=== PATIENT | male | born 1985 | race Caucasian/White ===

== ENCOUNTER 2016-11-19 23:16 | Emergency (ER) | payer OTHER ==
--- NOTE | 2016-11-19 23:39 | ED CLINICAL REPORT ---
Clinical Report - Physicians/Mid Levels [facility] [address] [place] [address] 11/19/2016 23:19 Patient: VANESSA HIGUERA Time Seen: 2330; upon arrival, initial patient contact, initial documentation, patient care assumed. Arrived- By private vehicle. Historian- patient. HISTORY OF PRESENT ILLNESS Chief Complaint: DENTAL PAIN. This started about 3 days ago and is still present. Pain described as severe. No sore throat, mouth sores, nasal discharge or congestion or ear pain. No jaw pain or facial pain. He has had toothache and swelling of the jaw and face. (says piece of tooth chipped off and he is hurting, did not take any otc meds for pain). Similar symptoms previously: ( tooth was capped for cavities). Recent medical care: Not recently seen/assessed. REVIEW OF SYSTEMS No fever or difficulty breathing. All systems otherwise negative, except as recorded above. PAST HISTORY See nurses notes. PROBLEMS: Dyspnea. Hyperventilation. Lumbar Strain. Allergic Rhinitis. Conjunctivitis. Sinusitis. Pharyngitis. Bronchospasm. Bronchitis. Back Pain. Back Injury. Crush Injury, Lower Extremity. Contusion. Tetanus Status. Immunizations. Asthma. --23:32 Page-April Ybarra R.N. ADDITIONAL SURGERIES: no known surgeries. SOCIAL HISTORY Light tobacco smoker. Occasional alcohol use. History of heavy drug use: marijuana. Recently used drugs just prior to arrival. Under influence in ED. No recent travel. Is a local resident. FAMILY HISTORY Negative. ADDITIONAL NOTES The nursing notes have been reviewed with agreement regarding the chief complaint, HPI, ROS, PMH and patient medications and allergies. PHYSICAL EXAM Vital Signs: 11/19/2016 23:29 BP: 113/64. HR: 61. RR: 17. O2 saturation: 99%. Temp: 97.6 F. Pain level now: 7/10. Have been reviewed as normal and appear to be correct. Appearance: Alert. No acute distress. (strong marijuana smell, and pt obviously under the influence). Head: Abnormal external inspection. Mild swelling of the left mandible. Eyes: Pupils equal, round and reactive to light. Conjunctivae and eyelids normal. ENT: Mild, localized dental decay (lower left second molar) (piece of tooth gone). No gingival tenderness, induration, swelling or fluctuance. Ears normal. Nose normal. Pharynx normal. Lips normal. Gums normal. No trismus present. Uvula midline. Neck: Normal inspection. Trachea midline. No adenopathy. Thyroid normal. Neck supple. Respiratory: No respiratory distress. Skin: Normal skin color. No rash. Normal skin turgor. Extremities: Extremities exhibit normal ROM. Extremities nontender. Neuro: Oriented X 3. No motor deficit. No sensory deficit. PROGRESS AND PROCEDURES Patient counseled in person regarding the patient's stable condition and diagnosis. 23:38. Differential Diagnosis: Other possible considerations: substance abuse, dental caries, pain, abscess. Above considerations are based on history and physical exam. Differential diagnosis was discussed with patient. Disposition: Discharged home in good and unchanged condition (23:38). Condition: good and stable. CLINICAL IMPRESSION Mild dental pain. INSTRUCTIONS Warnings: GENERAL WARNINGS: Return or contact your physician immediately if your condition worsens or changes unexpectedly, if not improving as expected, or if other problems arise. Specifically return if problem worsens. Prescription Medications: Penicillin V 500mg: take 1 tab orally every 6 hours for 10 days. Dispense forty (40). No refill Naprosyn 500 mg tablets: take 1 orally every 12 hours as needed for pain. Dispense twenty (20). No refills. Substitution is permissible. Follow-up: Follow up with a dentist in about three days as needed. Call for an appointment. Summary of care provided to patient. Understanding of the discharge instructions verbalized by patient. (Electronically signed by Vonnie Hanley A.R.N.P. 11/22/2016 11:14)
--- NOTE | 2016-11-19 23:39 | ED NURSING NOTES ---
Clinical Report - Nurses [facility] [address] [place] [address] 11/19/2016 23:19 Patient: VANESSA HIGUERA TRIAGE Triage time 23:29 Nov 19 2016. Chief Complaint: LEFT LOWER TOOTHACHE and CHIPPED TOOTH and JAW PAIN. Alert. No acute distress. SEPSIS SCREEN: Sepsis Screen: negative. Infection suspected/documented. --23:36 April Leiva R.N. 23:29 11/19/16. BP: 113/64. HR: 61. RR: 17. O2 saturation: 99%. Temp: 97.6 F. Pain level now: 01/23. --23:36 April Leiva R.N. Weight: 95.2 kg stated. Height/Length: 71 inches Per Patient. BMI: 29.3. --23:35 April Leiva R.N. Medications Albuterol Sulfate Inhalation. --23:31 April Leiva R.N. Medication/allergy information source: the patient. --23:36 April Leiva R.N. Allergies None. --23:31 April Leiva R.N. History Arrived by private vehicle. Historian: patient. Accompanied by family. Onset. (3 days). He has no dental appointment scheduled. 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 (pt hasn't taken any otc meds for pain). PAST MEDICAL HX: Immunizations: up-to-date. SOCIAL HX: Smoker- current status unknown (cigarette). History of drug use: marijuana. No alcohol use. No infectious disease exposure. ABUSE ASSESSMENT: No report of abuse. SELF HARM ASSESSMENT: A self harm assessment was performed. The patient answered "no" to the question "Have you recently felt down, depressed, or hopeless?", "Have you noticed less interest or pleasure in doing things?", "Do you have thoughts of harming or killing yourself?", "Are you here because you tried to hurt yourself?", "Have you ever tried to hurt yourself before today?", "Have you recently had thoughts about harming or killing others?" and "Do you have any dangerous items in your possession?". FALL RISK ASSESSMENT: Fall risk assessment completed. No fall risk identified. NUTRITIONAL RISK ASSESSMENT: The nutritional risk assessment revealed no deficiencies. FUNCTIONAL ASSESSMENT: Functional assessment: no impairments noted. LEARNING NEEDS ASSESSMENT: The learning needs assessment revealed no barriers. SKIN INTEGRITY ASSESSMENT: Skin integrity risk assessment completed. No skin integrity risk identified. --23:36 April Leiva R.N. PROBLEMS: Dyspnea. Hyperventilation. Lumbar Strain. Allergic Rhinitis. Conjunctivitis. Sinusitis. Pharyngitis. Bronchospasm. Bronchitis. Back Pain. Back Injury. Crush Injury, Lower Extremity. Contusion. Tetanus Status. Immunizations. Asthma. --23:32 April Leiva R.N. ADDITIONAL SURGERIES: no known surgeries. Interventions ID band on patient. --23:36 April Leiva R.N. PHYSICAL ASSESSMENT Ambulatory to room. GENERAL / NEURO / PSYCH: Alert. Oriented X 4. HEENT: Pupils equal, round and reactive to light. Dental tenderness. Dental decay. Mucous membranes are pink. RESPIRATORY: Respirations not labored. CVS: Capillary refill less than 2 seconds. SKIN: Skin is warm and dry. Normal skin turgor. --23:37 April Leiva R.N. NURSING PROGRESS NOTES Reassurance given. Patient identifiers checked. Call light placed in reach. Side rails up x 1. Bed placed in lowest position. Brakes of bed on. --23:38 April Leiva R.N. 00:13 11/20/2016 Ibuprofen PO Tablets 600 mg given. --00:13 Louise Vasquez R.N. 00:13 11/20/2016 Zofran ODT (Ondansetron) PO 4 mg given. --00:13 Louise Vasquez R.N. DISPOSITION / DISCHARGE 00:40 11/20/16. Departure time: 0030 AM. Condition at departure: unchanged. No learning barriers present. Discharge instructions provided and reviewed with the spouse. Reviewed medication(s). Treatments reviewed. Verbalized understanding. Written instructions provided in [place]. The patient was discharged home. He left the Emergency Department ambulatory. Spouse driving. Medication list reviewed and validated. FALL RISK ASSESSMENT: Fall risk assessment completed. No fall risk identified. --00:42 Louise Vasquez R.N. Locked/Released at 11/20/2016 19:02 by April Leiva R.N.
--- NOTE | 2016-11-19 23:39 | ED NURSING NOTES ---
Clinical Report - Nurses [facility] [address] [place] [address] 11/19/2016 23:19 Patient: VANESSA HIGUERA TRIAGE Triage time 23:29 Nov 19 2016. Chief Complaint: LEFT LOWER TOOTHACHE and CHIPPED TOOTH and JAW PAIN. Alert. No acute distress. SEPSIS SCREEN: Sepsis Screen: negative. Infection suspected/documented. --23:36 April Leiva R.N. 23:29 11/19/16. BP: 113/64. HR: 61. RR: 17. O2 saturation: 99%. Temp: 97.6 F. Pain level now: 01/23. --23:36 April Leiva R.N. Weight: 95.2 kg stated. Height/Length: 71 inches Per Patient. BMI: 29.3. --23:35 April Leiva R.N. Medications Albuterol Sulfate Inhalation. --23:31 April Leiva R.N. Medication/allergy information source: the patient. --23:36 April Leiva R.N. Allergies None. --23:31 April Leiva R.N. History Arrived by private vehicle. Historian: patient. Accompanied by family. Onset. (3 days). He has no dental appointment scheduled. 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 (pt hasn't taken any otc meds for pain). PAST MEDICAL HX: Immunizations: up-to-date. SOCIAL HX: Smoker- current status unknown (cigarette). History of drug use: marijuana. No alcohol use. No infectious disease exposure. ABUSE ASSESSMENT: No report of abuse. SELF HARM ASSESSMENT: A self harm assessment was performed. The patient answered "no" to the question "Have you recently felt down, depressed, or hopeless?", "Have you noticed less interest or pleasure in doing things?", "Do you have thoughts of harming or killing yourself?", "Are you here because you tried to hurt yourself?", "Have you ever tried to hurt yourself before today?", "Have you recently had thoughts about harming or killing others?" and "Do you have any dangerous items in your possession?". FALL RISK ASSESSMENT: Fall risk assessment completed. No fall risk identified. NUTRITIONAL RISK ASSESSMENT: The nutritional risk assessment revealed no deficiencies. FUNCTIONAL ASSESSMENT: Functional assessment: no impairments noted. LEARNING NEEDS ASSESSMENT: The learning needs assessment revealed no barriers. SKIN INTEGRITY ASSESSMENT: Skin integrity risk assessment completed. No skin integrity risk identified. --23:36 April Leiva R.N. PROBLEMS: Dyspnea. Hyperventilation. Lumbar Strain. Allergic Rhinitis. Conjunctivitis. Sinusitis. Pharyngitis. Bronchospasm. Bronchitis. Back Pain. Back Injury. Crush Injury, Lower Extremity. Contusion. Tetanus Status. Immunizations. Asthma. --23:32 April Leiva R.N. ADDITIONAL SURGERIES: no known surgeries. Interventions ID band on patient. --23:36 April Leiva R.N. PHYSICAL ASSESSMENT Ambulatory to room. GENERAL / NEURO / PSYCH: Alert. Oriented X 4. HEENT: Pupils equal, round and reactive to light. Dental tenderness. Dental decay. Mucous membranes are pink. RESPIRATORY: Respirations not labored. CVS: Capillary refill less than 2 seconds. SKIN: Skin is warm and dry. Normal skin turgor. --23:37 April Leiva R.N. NURSING PROGRESS NOTES Reassurance given. Patient identifiers checked. Call light placed in reach. Side rails up x 1. Bed placed in lowest position. Brakes of bed on. --23:38 April Leiva R.N. 00:13 11/20/2016 Ibuprofen PO Tablets 600 mg given. --00:13 Louise Vasquez R.N. 00:13 11/20/2016 Zofran ODT (Ondansetron) PO 4 mg given. --00:13 Louise Vasquez R.N. DISPOSITION / DISCHARGE 00:40 11/20/16. Departure time: 0030 AM. Condition at departure: unchanged. No learning barriers present. Discharge instructions provided and reviewed with the spouse. Reviewed medication(s). Treatments reviewed. Verbalized understanding. Written instructions provided in [place]. The patient was discharged home. He left the Emergency Department ambulatory. Spouse driving. Medication list reviewed and validated. FALL RISK ASSESSMENT: Fall risk assessment completed. No fall risk identified. --00:42 Louise Vasquez R.N. Locked/Released at 11/20/2016 19:02 by April Leiva R.N.
--- NOTE | 2016-11-22 11:14 | ED DISCHARGE INSTRUCTIONS ---
Patient: VANESSA HIGUERA General Instructions [facility] VisitID: [id number] [place] [address] 31y, M Registration Date/Time: 11/19/2016 Mild dental pain. INSTRUCTIONS Warnings: GENERAL WARNINGS: Return or contact your physician immediately if your condition worsens or changes unexpectedly, if not improving as expected, or if other problems arise. Specifically return if problem worsens. Prescription Medications: Penicillin V 500mg: take 1 tab orally every 6 hours for 10 days. Dispense forty (40). No refill Naprosyn 500 mg tablets: take 1 orally every 12 hours as needed for pain. Dispense twenty (20). No refills. Substitution is permissible. Follow-up: Follow up with a dentist in about three days as needed. Call for an appointment. Summary of care provided to patient. Understanding of the discharge instructions verbalized by patient. ADDITIONAL INFORMATION Dental Pain A crack or cavity in the tooth, which exposes the sensitive inner area of the tooth can cause tooth pain. An infection in the gum or the root of the tooth can cause pain and swelling. The pain is often made worse by drinking hot or cold fluids, or biting on hard foods. Pain may spread from the tooth to the ear or jaw on the same side. Home Care: Avoid hot and cold foods and liquids since your tooth may be sensitive to temperature changes. If your tooth is chipped or cracked, or if there is a large open cavity, apply OIL OF CLOVES (available logd-ejj-mdledns in drug stores) directly to the tooth to reduce pain. Some pharmacies carry an obpo-upt-yzeyqdv "toothache kit." This contains a paste, which can be applied over the exposed tooth to decrease sensitivity. A cold pack on your jaw over the sore area may help reduce pain. You may use acetaminophen (Tylenol) or ibuprofen (Motrin, Advil) to control pain, unless another medicine was prescribed. [ NOTE: If you have chronic liver or kidney disease or ever had a stomach ulcer or GI bleeding, talk with your doctor before using these medicines.] If you have signs of an infection, an antibiotic will be given. Take it as directed. Follow-Up as directed with a dentist. Your pain may go away with the treatment given. However, only a dentist can fully evaluate and treat the cause and prevent the pain from coming back again. TOOTHACHE IS A SIGN OF DISEASE IN YOUR TOOTH AND SHOULD BE EXAMINED AND TREATED BY A DENTIST. Get Prompt Medical Attention if any of the following occur: Your face becomes swollen or red Pain worsens or spreads to the neck Fever over 100.4 F (38.0 C) Unusual drowsiness; headache or stiff neck; weakness or fainting Pus drains from the tooth Difficulty swallowing or breathing Dental Cavity A dental cavity is a pit or crater in the enamel surface of the tooth. This exposes the sensitive inner layer of the tooth and causes pain. If untreated, the cavity will get bigger and may cause an infection or abscess in the root of the tooth. An infection in the tooth is a much more serious problem and may require a root canal or removal of the entire tooth. The tooth pain may be made worse by drinking hot or cold fluids. It may spread from the tooth to the ear or jaw on the same side. Home Care: Avoid hot and cold foods, and liquids since your tooth may be sensitive to temperature changes. If your tooth is chipped or cracked, or if there is a large open cavity, apply OIL OF CLOVES (available nkua-xhq-plaguxr in drug stores) directly to the tooth to reduce pain. Some pharmacies carry an mjyp-urm-cxrwmit "toothache kit." This contains oil of cloves and a paste, which can be applied over the exposed tooth to decrease sensitivity. An ice pack on your jaw over the sore area may help to reduce pain. You may use acetaminophen (Tylenol) or ibuprofen (Motrin, Advil) to control pain, unless another pain medicine was prescribed. [ NOTE: If you have liver disease or ever had a stomach ulcer, talk with your doctor before using these medicines.] If you have signs of an infection, an antibiotic will be given. Take it as directed. Follow-Up with your dentist as directed. Although your pain may go away with the treatment given, only a dentist can fully evaluate and treat this problem to prevent further tooth damage. Get Prompt Medical Attention if any of the following occur: Redness or swelling of the face Pain worsens or spreads to the neck Fever over 100.5 F (38C) Unusual drowsiness; headache or stiff neck; weakness or fainting Pus drains from the tooth or gum Difficulty swallowing or breathing Penicillin V Potassium Oral tablet What is this medicine? PENICILLIN V (pen i SILL in V) is a penicillin antibiotic. It is used to treat certain kinds of bacterial infections. It will not work for colds, flu, or other viral infections. How should I use this medicine? Take this medicine by mouth with a full glass of water. Follow the directions on the prescription label. Take your medicine at regular intervals. Do not take your medicine more often than directed. Take all of your medicine as directed even if you think your are better. Do not skip doses or stop your medicine early. Talk to your keyboard action assembler regarding the use of this medicine in children. While this drug may be prescribed for selected conditions, precautions do apply. What side effects may I notice from receiving this medicine? Side effects that you should report to your doctor or health sub acute care nurse as soon as possible: allergic reactions like skin rash or hives, swelling of the face, lips, or tongue breathing problems fever new symptoms of infection redness, blistering, peeling or loosening of the skin, including inside the mouth unusually weak or tired Side effects that usually do not require medical attention (report to your doctor or health sub acute care nurse if they continue or are bothersome): diarrhea headache nausea, vomiting sore mouth or tongue stomach upset What may interact with this medicine? control pills methotrexate other antibiotics probenecid some vaccines What if I miss a dose? If you miss a dose, take it as soon as you can. If it is almost time for your next dose, take only that dose. Do not take double or extra doses. Where should I keep my medicine? Keep out of the reach of children. Store at room temperature between 15 and 30 degrees C (59 and 86 degrees F). Keep container tightly closed. Throw away any unused medicine after the expiration date. What should I tell my health care provider before I take this medicine? They need to know if you have any of these conditions: asthma bowel disease, like colitis eczema kidney disease an unusual or allergic reaction to penicillin, cephalosporins, other antibiotics or medicines, foods, tartrazine or other dyes, or preservatives or trying to get breast-feeding What should I watch for while using this medicine? Tell your doctor or health sub acute care nurse if your symptoms do not improve. Do not treat diarrhea with over the counter products. Contact your doctor if you have diarrhea that lasts more than 2 days or if it is severe and watery. If you have diabetes, you may get a false-positive result for sugar in your urine. Check with your doctor or health sub acute care nurse. control pills may not work properly while you are taking this medicine. Talk to your doctor about using an extra method of control. Naproxen Sodium Oral tablet What is this medicine? NAPROXEN (na PROX en) is a non-steroidal anti-inflammatory drug (NSAID). It is used to reduce swelling and to treat pain. This medicine may be used for dental pain, headache, or painful monthly periods. It is also used for painful joint and muscular problems such as arthritis, tendinitis, bursitis, and gout. How should I use this medicine? Take this medicine by mouth with a glass of water. Follow the directions on the prescription label. Take it with food if your stomach gets upset. Try to not lie down for at least 10 minutes after you take it. Take your medicine at regular intervals. Do not take your medicine more often than directed. Long-term, continuous use may increase the risk of heart attack or stroke. A special MedGuide will be given to you by the pharmacist with each prescription and refill. Be sure to read this information carefully each time. Talk to your keyboard action assembler regarding the use of this medicine in children. Special care may be needed. What side effects may I notice from receiving this medicine? Side effects that you should report to your doctor or health sub acute care nurse as soon as possible: black or bloody stools, blood in the urine or vomit blurred vision chest pain difficulty breathing or wheezing nausea or vomiting severe stomach pain skin rash, skin redness, blistering or peeling skin, hives, or itching slurred speech or weakness on one side of the body swelling of eyelids, throat, lips unexplained weight gain or swelling unusually weak or tired yellowing of eyes or skin Side effects that usually do not require medical attention (report to your doctor or health sub acute care nurse if they continue or are bothersome): constipation headache heartburn What may interact with this medicine? alcohol aspirin cidofovir diuretics lithium methotrexate other drugs for inflammation like ketorolac or prednisone pemetrexed probenecid warfarin What if I miss a dose? If you miss a dose, take it as soon as you can. If it is almost time for your next dose, take only that dose. Do not take double or extra doses. Where should I keep my medicine? Keep out of the reach of children. Store at room temperature between 15 and 30 degrees C (59 and 86 degrees F). Keep container tightly closed. Throw away any unused medicine after the expiration date. What should I tell my health care provider before I take this medicine? They need to know if you have any of these conditions: asthma cigarette smoker drink more than 3 alcohol containing drinks a day heart disease or circulation problems such as heart failure or leg edema (fluid retention) high blood pressure kidney disease liver disease stomach bleeding or ulcers an unusual or allergic reaction to naproxen, aspirin, other NSAIDs, other medicines, foods, dyes, or preservatives or trying to get breast-feeding What should I watch for while using this medicine? Tell your doctor or health sub acute care nurse if your pain does not get better. Talk to your doctor before taking another medicine for pain. Do not treat yourself. This medicine does not prevent heart attack or stroke. In fact, this medicine may increase the chance of a heart attack or stroke. The chance may increase with longer use of this medicine and in people who have heart disease. If you take aspirin to prevent heart attack or stroke, talk with your doctor or health sub acute care nurse. Do not take other medicines that contain aspirin, ibuprofen, or naproxen with this medicine. Side effects such as stomach upset, nausea, or ulcers may be more likely to occur. Many medicines available without a prescription should not be taken with this medicine. This medicine can cause ulcers and bleeding in the stomach and intestines at any time during treatment. Do not smoke cigarettes or drink alcohol. These increase irritation to your stomach and can make it more susceptible to damage from this medicine. Ulcers and bleeding can happen without warning symptoms and can cause . You may get drowsy or dizzy. Do not drive, use machinery, or do anything that needs mental alertness until you know how this medicine affects you. Do not stand or sit up quickly, especially if you are an older patient. This reduces the risk of dizzy or fainting spells. This medicine can cause you to bleed more easily. Try to avoid damage to your teeth and gums when you brush or floss your teeth. You have been given the following additional information: Dental Pain Dental Cavity Penicillin V Potassium Oral tablet Naproxen Sodium Oral tablet (Electronically signed by TalonVonnie wells A.R.N.P. 11/22/2016 11:14)
--- NOTE | 2016-11-22 11:14 | ED MAR SUMMARY ---
..... Medication Administration Record [facility] [address] [place] [address] Patient: VANESSA HIGUERA Visit ID: [id number] 31y, M Weight: 95.2 kg Height/Length: 71 in BMI: 29.3 ALLERGIES: None Given 00:11/20/2016 Louise Vasquez R.N. Medication Administered: IBUPROFEN [PO], Dose: 600 mg Tablets PO. Medication Ordered: Ibuprofen PO 600 mg (NOW). Given 00:11/20/2016 Louise Vasquez, RAngleNAngle Medication Administered: ZOFRAN ODT [PO] (ONDANSETRON), Dose: 4 mg PO. Medication Ordered: Zofran ODT PO 4 mg (NOW).
--- NOTE | 2016-11-22 11:14 | ED MAR SUMMARY ---
..... Medication Administration Record [facility] [address] [place] [address] Patient: VANESSA HIGUERA Visit ID: [id number] 31y, M Weight: 95.2 kg Height/Length: 71 in BMI: 29.3 ALLERGIES: None Given 00:11/20/2016 Louise Vasquez R.N. Medication Administered: IBUPROFEN [PO], Dose: 600 mg Tablets PO. Medication Ordered: Ibuprofen PO 600 mg (NOW). Given 00:11/20/2016 Louise Vasquez, RAngleNAngle Medication Administered: ZOFRAN ODT [PO] (ONDANSETRON), Dose: 4 mg PO. Medication Ordered: Zofran ODT PO 4 mg (NOW).
--- NOTE | 2016-11-22 11:14 | ED MED RECONCILIATION SUMMARY ---
Patient: VANESSA HIGUERA Medication Reconciliation Report [facility] VisitID: [id number] [address] [place] [address] 31y, M Registration Date/Time: 11/19/2016 Weight: 95.2 kg Height/Length: 71 in. BMI: 29.3 ALLERGIES: None The patient's Home Medications are listed below: THE FOLLOWING MEDICATIONS NEED TO BE RECONCILED: Albuterol Sulfate Inhalation The source(s) of the original Home Medication information: patient The following Medications were given to the patient in the Emergency Department: Ibuprofen [PO] PO 600 mg, administered: 11/20/2016 12:13:00 AM Zofran ODT [PO] PO 4 mg, administered: 11/20/2016 12:13:00 AM The following Medications were prescribed to the patient: Penicillin V 500mg: take 1 tab orally every 6 hours for 10 days. Dispense forty (40). No refill -- Vonnie Hanley A.R.N.P. Naprosyn 500 mg tablets: take 1 orally every 12 hours as needed for pain. Dispense twenty (20). No refills. Substitution is permissible. -- Vonnie Hanley A.R.N.P.
--- NOTE | 2016-11-22 11:14 | ED DISCHARGE INSTRUCTIONS ---
Patient: VANESSA HIGUERA General Instructions [facility] VisitID: [id number] [place] [address] 31y, M Registration Date/Time: 11/19/2016 Mild dental pain. INSTRUCTIONS Warnings: GENERAL WARNINGS: Return or contact your physician immediately if your condition worsens or changes unexpectedly, if not improving as expected, or if other problems arise. Specifically return if problem worsens. Prescription Medications: Penicillin V 500mg: take 1 tab orally every 6 hours for 10 days. Dispense forty (40). No refill Naprosyn 500 mg tablets: take 1 orally every 12 hours as needed for pain. Dispense twenty (20). No refills. Substitution is permissible. Follow-up: Follow up with a dentist in about three days as needed. Call for an appointment. Summary of care provided to patient. Understanding of the discharge instructions verbalized by patient. ADDITIONAL INFORMATION Dental Pain A crack or cavity in the tooth, which exposes the sensitive inner area of the tooth can cause tooth pain. An infection in the gum or the root of the tooth can cause pain and swelling. The pain is often made worse by drinking hot or cold fluids, or biting on hard foods. Pain may spread from the tooth to the ear or jaw on the same side. Home Care: Avoid hot and cold foods and liquids since your tooth may be sensitive to temperature changes. If your tooth is chipped or cracked, or if there is a large open cavity, apply OIL OF CLOVES (available wdkw-idi-irjywlk in drug stores) directly to the tooth to reduce pain. Some pharmacies carry an wuqw-lhu-ztwjylx "toothache kit." This contains a paste, which can be applied over the exposed tooth to decrease sensitivity. A cold pack on your jaw over the sore area may help reduce pain. You may use acetaminophen (Tylenol) or ibuprofen (Motrin, Advil) to control pain, unless another medicine was prescribed. [ NOTE: If you have chronic liver or kidney disease or ever had a stomach ulcer or GI bleeding, talk with your doctor before using these medicines.] If you have signs of an infection, an antibiotic will be given. Take it as directed. Follow-Up as directed with a dentist. Your pain may go away with the treatment given. However, only a dentist can fully evaluate and treat the cause and prevent the pain from coming back again. TOOTHACHE IS A SIGN OF DISEASE IN YOUR TOOTH AND SHOULD BE EXAMINED AND TREATED BY A DENTIST. Get Prompt Medical Attention if any of the following occur: Your face becomes swollen or red Pain worsens or spreads to the neck Fever over 100.4 F (38.0 C) Unusual drowsiness; headache or stiff neck; weakness or fainting Pus drains from the tooth Difficulty swallowing or breathing Dental Cavity A dental cavity is a pit or crater in the enamel surface of the tooth. This exposes the sensitive inner layer of the tooth and causes pain. If untreated, the cavity will get bigger and may cause an infection or abscess in the root of the tooth. An infection in the tooth is a much more serious problem and may require a root canal or removal of the entire tooth. The tooth pain may be made worse by drinking hot or cold fluids. It may spread from the tooth to the ear or jaw on the same side. Home Care: Avoid hot and cold foods, and liquids since your tooth may be sensitive to temperature changes. If your tooth is chipped or cracked, or if there is a large open cavity, apply OIL OF CLOVES (available rdkp-uuf-pshpdls in drug stores) directly to the tooth to reduce pain. Some pharmacies carry an ybrz-ztx-ahuvliq "toothache kit." This contains oil of cloves and a paste, which can be applied over the exposed tooth to decrease sensitivity. An ice pack on your jaw over the sore area may help to reduce pain. You may use acetaminophen (Tylenol) or ibuprofen (Motrin, Advil) to control pain, unless another pain medicine was prescribed. [ NOTE: If you have liver disease or ever had a stomach ulcer, talk with your doctor before using these medicines.] If you have signs of an infection, an antibiotic will be given. Take it as directed. Follow-Up with your dentist as directed. Although your pain may go away with the treatment given, only a dentist can fully evaluate and treat this problem to prevent further tooth damage. Get Prompt Medical Attention if any of the following occur: Redness or swelling of the face Pain worsens or spreads to the neck Fever over 100.5 F (38C) Unusual drowsiness; headache or stiff neck; weakness or fainting Pus drains from the tooth or gum Difficulty swallowing or breathing Penicillin V Potassium Oral tablet What is this medicine? PENICILLIN V (pen i SILL in V) is a penicillin antibiotic. It is used to treat certain kinds of bacterial infections. It will not work for colds, flu, or other viral infections. How should I use this medicine? Take this medicine by mouth with a full glass of water. Follow the directions on the prescription label. Take your medicine at regular intervals. Do not take your medicine more often than directed. Take all of your medicine as directed even if you think your are better. Do not skip doses or stop your medicine early. Talk to your huc regarding the use of this medicine in children. While this drug may be prescribed for selected conditions, precautions do apply. What side effects may I notice from receiving this medicine? Side effects that you should report to your doctor or health before and after school daycare worker as soon as possible: allergic reactions like skin rash or hives, swelling of the face, lips, or tongue breathing problems fever new symptoms of infection redness, blistering, peeling or loosening of the skin, including inside the mouth unusually weak or tired Side effects that usually do not require medical attention (report to your doctor or health before and after school daycare worker if they continue or are bothersome): diarrhea headache nausea, vomiting sore mouth or tongue stomach upset What may interact with this medicine? control pills methotrexate other antibiotics probenecid some vaccines What if I miss a dose? If you miss a dose, take it as soon as you can. If it is almost time for your next dose, take only that dose. Do not take double or extra doses. Where should I keep my medicine? Keep out of the reach of children. Store at room temperature between 15 and 30 degrees C (59 and 86 degrees F). Keep container tightly closed. Throw away any unused medicine after the expiration date. What should I tell my health care provider before I take this medicine? They need to know if you have any of these conditions: asthma bowel disease, like colitis eczema kidney disease an unusual or allergic reaction to penicillin, cephalosporins, other antibiotics or medicines, foods, tartrazine or other dyes, or preservatives or trying to get breast-feeding What should I watch for while using this medicine? Tell your doctor or health before and after school daycare worker if your symptoms do not improve. Do not treat diarrhea with over the counter products. Contact your doctor if you have diarrhea that lasts more than 2 days or if it is severe and watery. If you have diabetes, you may get a false-positive result for sugar in your urine. Check with your doctor or health before and after school daycare worker. control pills may not work properly while you are taking this medicine. Talk to your doctor about using an extra method of control. Naproxen Sodium Oral tablet What is this medicine? NAPROXEN (na PROX en) is a non-steroidal anti-inflammatory drug (NSAID). It is used to reduce swelling and to treat pain. This medicine may be used for dental pain, headache, or painful monthly periods. It is also used for painful joint and muscular problems such as arthritis, tendinitis, bursitis, and gout. How should I use this medicine? Take this medicine by mouth with a glass of water. Follow the directions on the prescription label. Take it with food if your stomach gets upset. Try to not lie down for at least 10 minutes after you take it. Take your medicine at regular intervals. Do not take your medicine more often than directed. Long-term, continuous use may increase the risk of heart attack or stroke. A special MedGuide will be given to you by the pharmacist with each prescription and refill. Be sure to read this information carefully each time. Talk to your huc regarding the use of this medicine in children. Special care may be needed. What side effects may I notice from receiving this medicine? Side effects that you should report to your doctor or health before and after school daycare worker as soon as possible: black or bloody stools, blood in the urine or vomit blurred vision chest pain difficulty breathing or wheezing nausea or vomiting severe stomach pain skin rash, skin redness, blistering or peeling skin, hives, or itching slurred speech or weakness on one side of the body swelling of eyelids, throat, lips unexplained weight gain or swelling unusually weak or tired yellowing of eyes or skin Side effects that usually do not require medical attention (report to your doctor or health before and after school daycare worker if they continue or are bothersome): constipation headache heartburn What may interact with this medicine? alcohol aspirin cidofovir diuretics lithium methotrexate other drugs for inflammation like ketorolac or prednisone pemetrexed probenecid warfarin What if I miss a dose? If you miss a dose, take it as soon as you can. If it is almost time for your next dose, take only that dose. Do not take double or extra doses. Where should I keep my medicine? Keep out of the reach of children. Store at room temperature between 15 and 30 degrees C (59 and 86 degrees F). Keep container tightly closed. Throw away any unused medicine after the expiration date. What should I tell my health care provider before I take this medicine? They need to know if you have any of these conditions: asthma cigarette smoker drink more than 3 alcohol containing drinks a day heart disease or circulation problems such as heart failure or leg edema (fluid retention) high blood pressure kidney disease liver disease stomach bleeding or ulcers an unusual or allergic reaction to naproxen, aspirin, other NSAIDs, other medicines, foods, dyes, or preservatives or trying to get breast-feeding What should I watch for while using this medicine? Tell your doctor or health before and after school daycare worker if your pain does not get better. Talk to your doctor before taking another medicine for pain. Do not treat yourself. This medicine does not prevent heart attack or stroke. In fact, this medicine may increase the chance of a heart attack or stroke. The chance may increase with longer use of this medicine and in people who have heart disease. If you take aspirin to prevent heart attack or stroke, talk with your doctor or health before and after school daycare worker. Do not take other medicines that contain aspirin, ibuprofen, or naproxen with this medicine. Side effects such as stomach upset, nausea, or ulcers may be more likely to occur. Many medicines available without a prescription should not be taken with this medicine. This medicine can cause ulcers and bleeding in the stomach and intestines at any time during treatment. Do not smoke cigarettes or drink alcohol. These increase irritation to your stomach and can make it more susceptible to damage from this medicine. Ulcers and bleeding can happen without warning symptoms and can cause . You may get drowsy or dizzy. Do not drive, use machinery, or do anything that needs mental alertness until you know how this medicine affects you. Do not stand or sit up quickly, especially if you are an older patient. This reduces the risk of dizzy or fainting spells. This medicine can cause you to bleed more easily. Try to avoid damage to your teeth and gums when you brush or floss your teeth. You have been given the following additional information: Dental Pain Dental Cavity Penicillin V Potassium Oral tablet Naproxen Sodium Oral tablet (Electronically signed by TalonVonnie wells A.R.N.P. 11/22/2016 11:14)
--- NOTE | 2016-11-22 11:14 | ED MED RECONCILIATION SUMMARY ---
Patient: VANESSA HIGUERA Medication Reconciliation Report [facility] VisitID: [id number] [address] [place] [address] 31y, M Registration Date/Time: 11/19/2016 Weight: 95.2 kg Height/Length: 71 in. BMI: 29.3 ALLERGIES: None The patient's Home Medications are listed below: THE FOLLOWING MEDICATIONS NEED TO BE RECONCILED: Albuterol Sulfate Inhalation The source(s) of the original Home Medication information: patient The following Medications were given to the patient in the Emergency Department: Ibuprofen [PO] PO 600 mg, administered: 11/20/2016 12:13:00 AM Zofran ODT [PO] PO 4 mg, administered: 11/20/2016 12:13:00 AM The following Medications were prescribed to the patient: Penicillin V 500mg: take 1 tab orally every 6 hours for 10 days. Dispense forty (40). No refill -- Vonnie Hanley A.R.N.P. Naprosyn 500 mg tablets: take 1 orally every 12 hours as needed for pain. Dispense twenty (20). No refills. Substitution is permissible. -- Vonnie Hanley A.R.N.P.
--- NOTE | 2016-11-22 11:15 | ED ORDER SUMMARY ---
..... Patient: VANESSA HIGUERA OrderSheet [facility] VisitID: [id number] [address] [place] [place] [address] 31y, M Registration Date/Time: 11/19/2016 ORDER SHEET Weight: 95.2 kg (stated) Allergies: None GENERAL ORDERS: MEDICATION ORDERS: Ibuprofen PO 600 mg (NOW) (00:05 11/20/2016 [facility]) (0:13 Nader R.N.) Zofran ODT PO 4 mg (NOW) (00:05 11/20/2016 [facility] DO) (0:13 Nader R.N.) IV FLUIDS: ORDER SHEET NOTES: [Electronically signed by April Leiva R.N. (19:02 11/20/2016)] [Electronically signed by Vonnie Hanley (11:14 11/22/2016)] [Electronically locked/signed by April Leiva R.N. (19:02 11/20/2016)]
--- NOTE | 2016-11-22 11:15 | ED ORDER SUMMARY ---
..... Patient: VANESSA HIGUERA OrderSheet [facility] VisitID: [id number] [address] [place] [address] 31y, M Registration Date/Time: 11/19/2016 ORDER SHEET Weight: 95.2 kg (stated) Allergies: None GENERAL ORDERS: MEDICATION ORDERS: Ibuprofen PO 600 mg (NOW) (00:05 11/20/2016 [facility]) (0:13 Nader R.N.) Zofran ODT PO 4 mg (NOW) (00:05 11/20/2016 [facility] DO) (0:13 Nader R.N.) IV FLUIDS: ORDER SHEET NOTES: [Electronically signed by April Leiva R.N. (19:02 11/20/2016)] [Electronically signed by Vonnie Hanley (11:14 11/22/2016)] [Electronically locked/signed by April Leiva R.N. (19:02 11/20/2016)]
== END 2016-11-20 00:05 | disposition home or self-care (01) ==
LOC: ED SRH 23:16
DX: K08.89 Other specified disorders of teeth and supporting structures (principal); Z72.0 Tobacco use